=== PATIENT | female | born 1955 | race Caucasian/White ===

== ENCOUNTER 2019-04-19 14:44 | Observation (INO) ==
[2019-04-19] MEDS ORDERED: HYDROmorphone 2 MG/1 ML VIAL IV PRN ×2 (14:48→17:45)
[2019-04-19] MEDS ORDERED: DOCUSATE SODIUM 100 MG CAPSULE PO PRN (14:48)
[2019-04-19] MEDS: SODIUM CHLORIDE 0.9% 1,000 ML IV SCH (17:28)
[2019-04-19] MEDS: HYDROmorphone 2 MG/1 ML VIAL IV PRN ×2 (18:13→22:03)
[2019-04-19 18:23] LABS: Basophils # 0.1 10*3/uL (0.0-0.2); Basophils % 0.9 % (0.0-0.8); Eosinophils # 0.1 10*3/uL (0.0-0.87); Eosinophils % 0.9 % (0.00-10.9); Hemoglobin 13.9 GM/DL (12.0-16.0); Immature Granulocytes % 0.2 %; Immature Granulocytes Absolute 0.02 #; Lymphocytes # 2.8 10*3/uL (1.4-4.0); Lymphocytes % 34.2 % (21.3-54.2); Mean Corpuscular HGB Conc 33.1 GM/DL (32-36); Mean Corpuscular Volume 96.6 FL (87-102); Mean Platelet Volume 10.4 FL (9.6-12.0); Monocytes % 8.1 % (1.7-12.7); Neutrophils % 55.7 % (38.7-73.9); Platelet Count 237 T/CUMM (130-400); Red Blood Count 4.35 MC/CUMM (3.8-5.5); Red Cell Distribution Width 12.7 % (9.3-17.3)
[2019-04-19 18:57] LABS: Calcium 8.6 MG/DL (8.5-10.1); Osmolality,Calculated 281.5 MOS/KG (273-304)
[2019-04-19] MEDS: DOCUSATE SODIUM 100 MG CAPSULE PO SCH (20:36)
[2019-04-19] MEDS: MAGNESIUM HYDROXIDE SUSP 30 ML UDCUP PO PRN (20:37)
[2019-04-19] MEDS ORDERED: ENOXAPARIN 40 MG/0.4 ML SYRINGE SUBCUT SCH (21:00)
[2019-04-20] MEDS: HYDROmorphone 2 MG/1 ML VIAL IV PRN ×4 (03:18→21:05)
[2019-04-20] MEDS: SODIUM CHLORIDE 0.9% 1,000 ML IV SCH ×2 (06:15→17:46)
[2019-04-20] MEDS: MAGNESIUM HYDROXIDE SUSP 30 ML UDCUP PO PRN ×2 (08:43→21:05)
[2019-04-20] MEDS: PANTOPRAZOLE 40 MG TABLET PO SCH (08:43)
[2019-04-20] MEDS: DOCUSATE SODIUM 100 MG CAPSULE PO SCH ×2 (08:43→21:05)
[2019-04-20] MEDS: ONDANSETRON 4 MG/2 ML VIAL IV PRN ×2 (10:16→15:49)
[2019-04-21] MEDS: HYDROmorphone 2 MG/1 ML VIAL IV PRN ×2 (01:19→10:24)
[2019-04-21] MEDS: ONDANSETRON 4 MG/2 ML VIAL IV PRN ×3 (01:19→15:50)
[2019-04-21] MEDS: KETOROLAC 30 MG/1 ML VIAL IV PRN ×2 (04:14→22:08)
[2019-04-21] MEDS: SODIUM CHLORIDE 0.9% 1,000 ML IV SCH ×3 (07:27→22:07)
[2019-04-21] MEDS ORDERED: PROPOFOL 200 MG/20 ML VIAL IV ONE (11:04)
[2019-04-21] MEDS ORDERED: fentaNYL 100 MCG/2 ML VIAL ONE (11:05)
[2019-04-21] MEDS ORDERED: LIDOCAINE 2% 5 ML VIAL ONE (11:05)
[2019-04-21] MEDS ORDERED: MIDAZOLAM 2 MG/2 ML VIAL ONE (11:05)
[2019-04-21] MEDS ORDERED: LACTATED RINGERS 1,000 ML IV SCH (11:30)
[2019-04-21] MEDS ORDERED: DEXAMETHASONE 10 MG/1 ML VIAL ONE (11:31)
[2019-04-21] MEDS ORDERED: hydrALAZINE 20 MG/1 ML VIAL ONE (12:41)
[2019-04-21] MEDS ORDERED: hydrALAZINE 20 MG/1 ML VIAL IV ONE (12:45)
[2019-04-21] MEDS ORDERED: ONDANSETRON 4 MG/2 ML VIAL ONE (12:51)
[2019-04-21] MEDS: DOCUSATE SODIUM 100 MG CAPSULE PO SCH ×2 (15:29→21:19)
[2019-04-21] MEDS: buPROPion SR 150 MG TABLET PO SCH ×2 (15:30→21:19)
[2019-04-21] MEDS: ACETAMINOPHEN 325 MG TABLET PO PRN (15:43)
[2019-04-21] MEDS: METOPROLOL SUCCINATE XL 25 MG TABLET PO SCH (15:44)
[2019-04-21] MEDS: LOSARTAN/HCTZ 50-12.5 MG TABLET PO SCH (15:44)
[2019-04-21] MEDS: MONTELUKAST 10 MG TABLET PO SCH (15:44)
[2019-04-21] MEDS: PANTOPRAZOLE 40 MG TABLET PO SCH (15:45)
[2019-04-21] MEDS ORDERED: SIMVASTATIN 40 MG TABLET PO SCH (21:00)
[2019-04-22] MEDS: ACETAMINOPHEN 325 MG TABLET PO PRN (06:08)
[2019-04-22 08:26] VITALS: BP 152/73
[2019-04-22] MEDS: PANTOPRAZOLE 40 MG TABLET PO SCH (08:52)
[2019-04-22] MEDS: MONTELUKAST 10 MG TABLET PO SCH (08:52)
[2019-04-22] MEDS: buPROPion SR 150 MG TABLET PO SCH (08:53)
[2019-04-22] MEDS: METOPROLOL SUCCINATE XL 25 MG TABLET PO SCH (08:53)
[2019-04-22] MEDS: DOCUSATE SODIUM 100 MG CAPSULE PO SCH (08:53)
[2019-04-22] MEDS: LOSARTAN/HCTZ 50-12.5 MG TABLET PO SCH (08:53)
== END 2019-04-22 11:33 | disposition home or self-care (01) ==
LOC: N.5E
PROVIDERS: ADMIT Family Medicine; ATTEND Family Medicine